=== PATIENT | male | born 1970 | race Caucasian/White ===

== ENCOUNTER → 2024-12-29 | Outpatient (CLI) | payer OTHER, SELFPAY ==
--- NOTE | 2024-12-29 10:19 | NEURO ---
NCS and/or EMG Patient Report Ordering Doctor: Shy Bowen DATE OF SERVICE: 12/29/24 Jamaal presents with complaints of numbness and tingling in both lower limbs with sharp pains around the second digit of the left foot. Electrodiagnostic findings: Left peroneal motor nerve demonstrates normal distal latency and amplitude with reduced conduction velocity. Right peroneal motor nerve demonstrates normal distal latency and amplitude with reduced conduction velocity. Tibial motor conduction velocity is decreased bilaterally. Prolonged tibial and peroneal F?waves. Prolonged H?reflex bilaterally. Prolonged sural latency bilaterally. Needle EMG testing was performed in the lower limbs. All muscles tested showed no evidence of denervation with normal motor unit action potentials Electrodiagnostic impression: This is an abnormal study in the lower limbs. 1. 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 This is likely secondary to history of diabetes. Multi Select Codes Neurology Neurology Interp Codes: 00946-98 Musc test done w/n test comp (interp) (2) and 83644-78 Nrv cndj test 9-10 studies (interp)
== END | disposition home or self-care (01) ==
LOC: PSN 08:54
PROVIDERS: PCP Family Medicine; Referring Provider Podiatrist; Visit Provider Podiatrist
DX: G64 Other disorders of peripheral nervous system (principal)
CPT/HCPCS: 95886; 95911